=== PATIENT | female | born 1950 | race Caucasian/White ===

== ENCOUNTER → 2020-09-16 | Outpatient (CLI) | payer MEDICARE | END | disposition home or self-care (01) | LOC: RAD 15:46 | PROVIDERS: ATTEND Specialist | DX: S49.91XA Unspecified injury of right shoulder and upper arm, initial encounter (principal); S42.031A Displaced fracture of lateral end of right clavicle, initial encounter for closed fracture; M85.88 Other specified disorders of bone density and structure, other site; M47.812 Spondylosis without myelopathy or radiculopathy, cervical region; W19.XXXA Unspecified fall, initial encounter; Y93.89 Activity, other specified; Y92.89 Other specified places as the place of occurrence of the external cause; Y99.8 Other external cause status | CPT/HCPCS: 71120; 72052 ==

== ENCOUNTER → 2021-04-01 | Outpatient (CLI) | payer MEDICARE ==
[~2021-04-01] MED LIST: ACYC-40 PO; BUTA-177 PO; CYCL10TA2 PO; LEVO50TA5 PO; MELA1TAB15 PO; MELO7.5T31 PO; METH1ADH TD; MINE3.5O4 EACHEYE; MIRT-34 PO; OMEP-110 PO; ONDA4TAB13 SL; OXYC10TA6 PO; PRED5DRO20 LEFTEYE; TRAZ-175 PO; VIT1TABL32 PO
== END | disposition home or self-care (01) ==
LOC: STAR 13:32
PROVIDERS: ATTEND Orthopaedic Surgery
DX: Z01.812 Encounter for preprocedural laboratory examination (principal); Z20.822 Contact with and (suspected) exposure to COVID-19; M18.11 Unilateral primary osteoarthritis of first carpometacarpal joint, right hand; I49.8 Other specified cardiac arrhythmias; I25.2 Old myocardial infarction
CPT/HCPCS: 93005; U0003; U0005

== ENCOUNTER 2021-04-06 05:46 | Day surgery (SDC) | payer MEDICARE ==
[~2021-04-06] VITALS: Ht 165.1 cm; Wt 46.0 kg
[2021-04-06 06:06] VITALS: BP 122/84
[2021-04-06] MEDS ORDERED: LACTATED RINGERS 1,000 ML IV SCH (06:30)
[2021-04-06] MEDS ORDERED: CHLORHEXIDINE 15 ML UDC PO ONE (06:30)
[2021-04-06] MEDS ORDERED: BUPIVACAINE/PF 0.5% ONE (06:34)
[2021-04-06] MEDS ORDERED: LIDOCAINE-MPF 1%, 5ML ONE (06:34)
[2021-04-06] MEDS ORDERED: FENTANYL PF 100 MCG/2ML ONE (07:13)
[2021-04-06] MEDS ORDERED: MIDAZOLAM 1 MG/ML, 2ML IV PRN (08:00)
[2021-04-06] MEDS ORDERED: ALBUTEROL SULFATE 2.5 MG/3 ML NPPB PRN (08:00)
[2021-04-06] MEDS ORDERED: LABETALOL 5MG/ML, 20ML IV PRN (08:00)
[2021-04-06] MEDS ORDERED: OXYcodone 5 MG/5 ML ORAL.SOL UDC PO PRN (08:00)
[2021-04-06] MEDS ORDERED: ACETAMINOPHEN 325 MG TABLET PO PRN (08:00)
[2021-04-06] MEDS ORDERED: HYDROmorphone 1 MG/ML, 1ML INJ IVPush PRN (08:00)
[2021-04-06] MEDS ORDERED: MEPERIDINE/PF 25MG/0.5ML IVPush PRN (08:00)
[2021-04-06] MEDS ORDERED: FENTANYL PF 100 MCG/2ML IV PRN (08:00)
[2021-04-06] MEDS ORDERED: PROMETHAZINE 25 MG/ML, 1ML IVPush PRN (08:00)
[2021-04-06] MEDS ORDERED: hydrALAzine 20 MG/ML, 1ML IV PRN (08:00)
[2021-04-06] MEDS ORDERED: LIDOCAINE-MPF 2% ,5ML ONE (08:04)
[2021-04-06] MEDS ORDERED: ONDANSETRON 2MG/ML, 2ML ONE (08:04)
[2021-04-06] MEDS ORDERED: CEFAZOLIN 1,000 MG ONE (08:04)
[2021-04-06] MEDS ORDERED: PROPOFOL 10 MG/ML, 20ML ONE (08:04)
[2021-04-06] MEDS ORDERED: DEXAMETHASONE 4 MG/ML, 1ML ONE (08:04)
[2021-04-06] MEDS ORDERED: KETOROLAC 30 MG/1 ML ONE (08:05)
== END 2021-04-06 11:00 | disposition home or self-care (01) ==
LOC: OUT 05:46
PROVIDERS: ATTEND Orthopaedic Surgery
DX: M18.11 Unilateral primary osteoarthritis of first carpometacarpal joint, right hand (principal); M25.741 Osteophyte, right hand; E03.9 Hypothyroidism, unspecified; K21.9 Gastro-esophageal reflux disease without esophagitis; Z79.890 Hormone replacement therapy; Z79.899 Other long term (current) drug therapy; Z88.5 Allergy status to narcotic agent; Z88.8 Allergy status to other drugs, medicaments and biological substances
CPT/HCPCS: 25447; C1762; C1776; J0690; J1100; J1170; J1885; J2405; J2704; J3010; J7120